=== PATIENT | female | born 1990 | race Hispanic/Latino ===

== ENCOUNTER 2022-08-28 18:08 | Emergency (ER) | payer SELFPAY ==
--- OUTSIDE RECORDS SUMMARY | 2022-08-28 18:10 | XMS REPORT | Continuity of Care Document ---
:[address] [facility] Address [address] [place] [address] Care Team Providers Name Role Phone PCP, PATIENT DOES NOT HAVE A Primary Care Physician Unavaila ble MARTHA CURIEL Attending Clinician Unavailable Only, Ang Db Test Attending Clinician Unavailable Omlester SALES REPRESENTATIVE LIVESTOCKMartha Attending Clinician Ebrahim SALES REPRESENTATIVE LIVESTOCK, Farrukh Attending Clinician Doctor Unassigned, Causey Attending Clinician Unavailable Problems This patient has no known problems. Allergies, Adverse Reactions, Alerts Allergy Allergy Status Severity Reaction(s) Onset Inactive Treating Comm ents Source Name Type Date Date Clinician NO KNOWN Drug Active Univers ALLERGIE Class ity of S [facility] Social History Social Habit Start Date Stop Date Quantity Comments Source Exposure to 2022-05-07 2022-05-17 Yes [facility] SARS-CoV-2 (event) 00:00:00 19:57:00 Medica l Branch Sex Assigned At [birth year] [facility] y of [place] 00:00:00 00:00:00 [facility] Smoking Status Start Date Stop Date Source Tobacco smoking consumption [facility] Branch Medications This patient has no known medications. Immunizations Ordered Filled Immunization Date Status Comments [facility] e Immunization Name Name SARS-COV-2 COVID-19 2021-09-04 Completed Unive rsity of PFIZER VACCINE 00:00:00 [facility] SARS-COV-2 COVID-19 2021-09-04 Completed Unive rsity of PFIZER VACCINE 00:00:00 [facility] SARS-COV-2 COVID-19 2021-09-04 Completed Unive rsity of PFIZER VACCINE 00:00:00 [facility] SARS-COV-2 COVID-19 2021-03-15 Completed Unive rsity of PFIZER VACCINE 00:00:00 [facility] SARS-COV-2 COVID-19 2021-03-15 Completed Unive rsity of PFIZER VACCINE 00:00:00 [facility] SARS-COV-2 COVID-19 2021-03-15 Completed Unive rsity of PFIZER VACCINE 00:00:00 [facility] SARS-COV-2 COVID-19 2021-02-24 Completed Unive rsity of PFIZER VACCINE 00:00:00 [facility] SARS-COV-2 COVID-19 2021-02-24 Completed Unive rsity of PFIZER VACCINE 00:00:00 [facility] SARS-COV-2 COVID-19 2021-02-24 Completed Unive rsity of PFIZER VACCINE 00:00:00 [facility] Procedures This patient has no known procedures. Encounters Start End Encounter Admission Attending Care Care Encounter Source Date/Time Date/Time Type Type Clinicians Facility Department ID 2022-05-17 2022-05-17 Outpatient R [facility] [id number] Univers 20:00:00 20:17:04 [facility] 2022-05-17 2022-05-17 Laboratory Only, Ang Db Test [facility] 1.2.8 40.114 [id number] Univers 20:00:00 20:15:00 Only [facility] [employer] [id number] ity of [place] [id number] Miah as MARCI?BLEA [phone] [address] MEDICAL OFFICE BUILDING 2022-05-17 2022-05-17 Letter Jojo ALSHERRON [id number] Univers 00:00:00 00:00:00 (Out) [employer] [id number] it y of [place] [id number] Miah as MARCI?BLEA [phone] [address] MEDICAL OFFICE [facility] 2022-05-17 2022-05-17 Letter Doctor LONG [id number] Univers 00:00:00 00:00:00 (Out) UnassignedANGELINE [id number] ity of Causey [facility] [id number] Miah as [phone] [facility] 044 Branch Results This patient has no known results.
--- NOTE | 2022-08-28 18:41 | EDPHYS ---
Physician Documentation [facility] Name: Teresita Chavez Age: 31 yrs Sex: Female : 1990 Arrival Date: 08/28/2022 Time: 18:12 Bed 11 Private MD: ED Physician Guero Fernández HPI: 08/28 18:33 This 31 yrs old Female presents to ER via Ambulatory with complaints of Eye cp Swelling. 18:33 The patient is experiencing swelling of right lower eyelid. Onset: The symptoms/episode cp began/occurred this morning. Duration: the symptoms are continuous. Associated signs and symptoms: Pertinent negatives: fever. Patient denies use of contact lenses. 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 - Social history:: Smoking status: Patient reports the use of cigarette tobacco products, denies chronic smoking, but will smoke occasionally. ROS: 18:35 Constitutional: Negative for fever. cp 18:35 Eyes: Positive for swelling, of the right lower eyelid, Negative for discharge, matting, visual disturbance. 18:35 ENT: Negative for drainage from ear(s), ear pain, sore throat, difficulty swallowing, difficulty handling secretions. 18:35 Neuro: Negative for altered mental status, headache. 18:35 All other systems are negative. Exam: 18:36 Head/Face: Normocephalic, atraumatic. cp 18:36 Constitutional: The patient appears in no acute distress, alert, awake, non-toxic, well developed, well nourished. 18:36 Eyes: Periorbital structures: appear normal, Conjunctiva: erythema of right lower eyelid conjunctiva. Sclera: no appreciated abnormality, Lids and lashes: erythema, right lower eyelid, stye, right lower eyelid. 18:36 ENT: External ear(s): are unremarkable, Nose: is normal, Mouth: Lips: moist, Oral mucosa: moist. 18:36 Cardiovascular: Rate: normal. 18:36 Respiratory: the patient does not display signs of respiratory distress, Respirations: normal. 18:36 Skin: cellulitis, is not appreciated, no rash present. Vital Signs: 18:28 BP 126 / 82; Pulse 85; Resp 14; Temp 97.3(TE); Pulse Ox 100% on R/A; Weight 77.11 kg; ss Height 5 ft. 2 in. (157.48 cm); Pain 7/10; 18:28 Body Mass Index 31.09 (77.11 kg, 157.48 cm) ss MDM: 18:33 Patient medically screened. cp 18:39 Data reviewed: vital signs, nurses notes. Counseling: I had a detailed discussion with cp the patient and/or guardian regarding: the historical points, exam findings, and any diagnostic results supporting the discharge/admit diagnosis, to return to the emergency department if symptoms worsen or persist or if there are any questions or concerns that arise at home. Administered Medications: No medications were administered Disposition Summary: 08/28/22 18:41 Discharge Ordered Location: Home cp Problem: new cp Symptoms: are unchanged cp Condition: Stable cp Diagnosis - Hordeolum internum right lower eyelid cp Followup: cp - With: Rosmery Jackson MD - When: 2 - 3 days - Reason: Worsening of condition Discharge Instructions: - Discharge Summary Sheet cp - Nick cp Forms: - Medication Reconciliation Form cp - Thank You Letter cp - Antibiotic Education cp - Prescription Opioid Use cp Prescriptions: - Erythromycin 5 mg/gram (0.5 %) Ophthalmic Ointment - apply 1 ribbon by OPHTHALMIC route every 8 hours apply to inner right lower cp eyelid as directed for next 5-7 days; 1 tube; Refills: 0, Product Selection Permitted Signatures: Sheri Diallo RN RN ss Triston Ren PA PA cp Corrections: (The following items were deleted from the chart) 18:43 18:41 Chalazion right lower eyelid cp cp
--- NOTE | 2022-08-28 18:41 | ER ---
Nurse's Notes [facility] Name: Teresita Chavez Age: 31 yrs Sex: Female : 1990 Arrival Date: 08/28/2022 Time: 18:12 Bed 11 Private MD: Diagnosis: Hordeolum internum right lower eyelid Presentation: 08/28 18:28 Chief complaint: Patient states: Swelling to R eyelid that began yesterday. Coronavirus ss screen: Client denies travel out of the [place] in the last 14 days. Ebola Screen: Patient denies exposure to infectious person. Patient denies travel to an Ebola-affected area in the 21 days before illness onset. Initial Sepsis Screen: Does the patient meet any 2 criteria? No. Patient's initial sepsis screen is negative. Does the patient have a suspected source of infection? No. Patient's initial sepsis screen is negative. Risk Assessment: Do you want to hurt yourself or someone else? Patient reports no desire to harm self or others. Onset of symptoms was August 27, 2022. 18:28 Method Of Arrival: Ambulatory ss 18:28 Acuity: JIE 5 ss Triage Assessment: 18:49 General: Appears in no apparent distress. comfortable, Behavior is calm, cooperative, kr3 appropriate for age. Pain: Complains of pain in right eye. 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 - Social history:: Smoking status: Patient reports the use of cigarette tobacco products, denies chronic smoking, but will smoke occasionally. Screenin:48 Abuse screen: Denies threats or abuse. Nutritional screening: No deficits noted. kr3 Tuberculosis screening: No symptoms or risk factors identified. Fall Risk None identified. Vital Signs: 18:28 BP 126 / 82; Pulse 85; Resp 14; Temp 97.3(TE); Pulse Ox 100% on R/A; Weight 77.11 kg; ss Height 5 ft. 2 in. (157.48 cm); Pain 7/10; 18:28 Body Mass Index 31.09 (77.11 kg, 157.48 cm) ED Course: 18:12 Patient arrived in ED. mr 18:30 Triage completed. ss 18:30 Page, Triston, PA is PHCP. cp 18:30 Guero Fernández MD is Attending Physician. cp 18:30 Arm band placed on right wrist. ss 18:35 Tammy Null, RN is Primary Nurse. kr3 18:39 Rosmery Jackson MD is Referral Physician. cp 18:49 No provider procedures requiring assistance completed. Patient did not have IV access kr3 during this emergency room visit. 18:50 Placed in gown. Bed in low position. Call light in reach. Side rails up X 1. kr3 Administered Medications: No medications were administered Medication: 18:50 VIS not applicable for this client. kr3 Outcome: 18:41 Discharge ordered by MD. cp 18:49 Discharged to home ambulatory. kr3 18:49 Condition: stable 18:49 Discharge instructions given to patient, Instructed on discharge instructions, follow up and referral plans. medication usage, Demonstrated understanding of instructions, follow-up care, medications, Prescriptions given X 1. 18:50 Patient left the ED. kr3 Signatures: Ness Castro Sheri Diallo, RN RN Triston Ren PA PA cp Tammy Null, RN RN kr3
[2022-08-28 18:54] VITALS: BP 126/82; TEMP 97.3; O2SAT 100
== END 2022-08-28 18:50 | disposition home or self-care (01) ==
LOC: ER 18:08
DX: H00.022 Hordeolum internum right lower eyelid (principal)
CPT/HCPCS: 99282

== ENCOUNTER 2023-03-20 18:06 | Emergency (ER) | payer SELFPAY ==
--- OUTSIDE RECORDS SUMMARY | 2023-03-20 18:10 | XMS REPORT | Continuity of Care Document ---
:1990 Author Organization [facility] Address [address] [place] [address] [place] [address] Care Team Providers Name Role Phone PCP, PATIENT DOES NOT HAVE A Primary Care Physician Unavaila ble MARTHA CURIEL Attending Clinician Unavailable Only, Ang Db Test Attending Clinician Unavailable Moisés ANESTHESIOLOGY FACULTYMartha Attending Clinician Ebrahim ANESTHESIOLOGY FACULTY, Farrukh Attending Clinician Doctor Unassigned, [facility] Attending Clinician Unavailable Problems This patient has no known problems. Allergies, Adverse Reactions, Alerts Allergy Allergy Status Severity Reaction(s) Onset Inactive Treating Comm ents Source Name Type Date Date Clinician NO KNOWN Drug Active Univers ALLERGIE Class ity of S [facility] Social History Social Habit Start Date Stop Date Quantity Comments Source Exposure to 2022-05-07 2022-05-17 Yes [facility] SARS-CoV-2 (event) 00:00:00 19:57:00 Medica l Branch Sex Assigned At [birth year] [facility] y of [place] 00:00:00 00:00:00 [facility] Smoking Status Start Date Stop Date Source Tobacco smoking consumption [facility] Branch Medications This patient has no known medications. Immunizations Ordered Filled Immunization Date Status Comments [facility] Branch e Immunization Name Name SARS-COV-2 COVID-19 2021-09-04 Completed Unive rsity of PFIZER VACCINE 00:00:00 [facility] SARS-COV-2 COVID-19 2021-09-04 Completed Unive rsity of PFIZER VACCINE 00:00:00 [facility] SARS-COV-2 COVID-19 2021-09-04 Completed Unive rsity of PFIZER VACCINE 00:00:00 [facility] SARS-COV-2 COVID-19 2021-03-15 Completed Unive rsity of PFIZER VACCINE 00:00:00 [facility] SARS-COV-2 COVID-19 2021-03-15 Completed Unive rsity of PFIZER VACCINE 00:00:00 [facility] SARS-COV-2 COVID-19 2021-03-15 Completed Unive rsity of PFIZER VACCINE 00:00:00 [facility] SARS-COV-2 COVID-19 2021-02-24 Completed Unive rsity of PFIZER VACCINE 00:00:00 [facility] SARS-COV-2 COVID-19 2021-02-24 Completed Unive rsity of PFIZER VACCINE 00:00:00 [facility] SARS-COV-2 COVID-19 2021-02-24 Completed Unive rsity of PFIZER VACCINE 00:00:00 [facility] Procedures This patient has no known procedures. Encounters Start End Encounter Admission Attending Care Care Encounter Source Date/Time Date/Time Type Type Clinicians Facility Department ID 2022-05-17 2022-05-17 Outpatient R [facility] [id number] Univers 20:00:00 20:17:04 [facility] 2022-05-17 2022-05-17 Laboratory Only, Ang Db Test [facility] 1.2.8 40.114 [id number] Univers 20:00:00 20:15:00 [facility] [employer] [id number] ity of [place] [id number] Miah as MARCI?BLEA [id number] [address] MEDICAL OFFICE BUILDING 2022-05-17 2022-05-17 Letter Jojo MNSHERRON [id number] Univers 00:00:00 00:00:00 (Out) [facility] [id number] it y of [place] [id number] Miah as MARCI?BLEA [phone] [address] MEDICAL OFFICE [facility] 2022-05-17 2022-05-17 Letter Doctor LONG [id number] Univers 00:00:00 00:00:00 (Out) UnassignedANGELINE [id number] [id number] Miah as [phone] [facility] 044 Branch Results This patient has no known results.
--- NOTE | 2023-03-20 18:50 | EDPHYS ---
Physician Documentation [facility] Name: Teresita Chavez Age: 32 yrs Sex: Female : 1990 Arrival Date: 03/20/2023 Time: 18:06 Bed 10 Private MD: ED Physician Triston Yousif HPI: 03/20 18:46 This 32 yrs old Female presents to ER via Unassigned with complaints of Finger jmm Injury, Laceration. 18:46 This is a 32 year old female that presents to the ED with complaints of laceration to jmm her left 2nd finger. Occurred last night. Put glue on the wound. Was concerned it may need stitches. Unsure on tetanus immumizations. . 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 - Social history:: Smoking status: Patient denies any tobacco usage or history of. ROS: 18:46 Constitutional: Negative for fever, chills, and weight loss, Cardiovascular: Negative jmm for chest pain, palpitations, and edema, Respiratory: Negative for shortness of breath, cough, wheezing, and pleuritic chest pain. 18:46 MS/extremity: Positive for laceration. 18:46 All other systems are negative. Exam: 18:46 Constitutional: This is a well developed, well nourished patient who is awake, alert, jmm and in no acute distress. Head/Face: atraumatic. Eyes: EOMI, no conjunctival erythema appreciated ENT: Moist Mucus Membranes Neck: Trachea midline, Supple Chest/axilla: Normal chest wall appearance and motion. Cardiovascular: Regular rate and rhythm. No edema appreciated Respiratory: Normal respirations, no respiratory distress appreciated Abdomen/GI: Non distended Back: Normal ROM 18:46 Skin: laceration ntoed to the left 2nd finger with glue applied. Mild erythema noted. 18:46 Neuro: Orientation: is normal, Mentation: is normal, Memory: is normal. 18:46 Psych: Behavior/mood is pleasant, cooperative. Vital Signs: 18:49 BP 124 / 78; Pulse 74; Resp 16; Temp 98.1; Pulse Ox 100% ; Weight 78.02 kg; Height 5 mb9 ft. 1 in. ; 18:49 Body Mass Index 32.50 (78.02 kg, 154.94 cm) mb9 MDM: 18:45 Patient medically screened. [facility] 18:48 Differential diagnosis: laceration, cellulitis. Data reviewed: vital signs, nurses [facility] notes. Counseling: I had a detailed discussion with the patient and/or guardian regarding: the historical points, exam findings, and any diagnostic results supporting the discharge/admit diagnosis, the need for outpatient follow up, to return to the emergency department if symptoms worsen or persist or if there are any questions or concerns that arise at home. 03/20 18:45 Order name: Wound Care; Complete Time: 18:54 [facility] Administered Medications: 19:05 Drug: Tetanus-Diphtheria Toxoid IM Adult 0.5 ml {Medical Support Specialist: Karisma Kidz. Exp: mb9 04/13/2024. Lot #: [id number]. } Route: IM; Site: left deltoid; 19:06 Follow up: Response: No adverse reaction 9 Disposition Summary: 03/20/23 18:49 Discharge Ordered Location: Home [facility] Condition: Stable [facility] Diagnosis - Laceration of the Finger [facility] Followup: [facility] - With: Private Physician - When: 2 - 3 days - Reason: Recheck today's complaints, Continuance of care, Re-evaluation by your physician Discharge Instructions: - Discharge Summary Sheet [facility] - Nonsutured Laceration Care [facility] Forms: - Work release form [place] - Medication Reconciliation Form [facility] - Thank You Letter [facility] - Antibiotic Education [facility] - Prescription Opioid Use [facility] Prescriptions: - Cephalexin 500 mg Oral Capsule - take 1 capsule by ORAL route every 6 hours for 10 days; 40 capsule; Refills: 0, [facility] Product Selection Permitted Signatures: Carlton Brink PA PA jmm Breneman, Mary Beth RN RN mb9
[2023-03-20] MEDS ORDERED: TETANUS & DIPHTHERIA TOX,ADULT 0.5 ML VIAL ONE (19:02)
--- NOTE | 2023-03-20 19:07 | ER ---
Nurse's Notes [facility] Name: Teresita Chavez Age: 32 yrs Sex: Female : 1990 Arrival Date: 03/20/2023 Time: 18:06 Bed 10 Private MD: Diagnosis: Laceration of the Finger Presentation: 03/20 18:49 Chief complaint: Patient states: "yesterday I was cooking and when I went to open a can mb9 of beans with a can nurse supervisor and it sliced my left pointer". Coronavirus screen: Vaccine status: Patient reports being unvaccinated. Ebola Screen: No symptoms or risks identified at this time. Initial Sepsis Screen: Does the patient meet any 2 criteria? No. Patient's initial sepsis screen is negative. Does the patient have a suspected source of infection? No. Patient's initial sepsis screen is negative. Risk Assessment: Do you want to hurt yourself or someone else? Patient reports no desire to harm self or others. Onset of symptoms was March 19, 2023. 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 - Social history:: Smoking status: Patient denies any tobacco usage or history of. Screenin:54 [facility] ED Fall Risk Assessment (Adult) History of falling in the last 3 months, mb9 including since admission No falls in past 3 months (0 pts) Confusion or Disorientation No (0 pts) Intoxicated or Sedated No (0 pts) Impaired Gait No (0 pts) Mobility Assist Device Used No (0 pt) Altered Elimination No (0 pt) Score/Fall Risk Level 0 - 2 = Low Risk. [facility] ED Fall Risk Assessment (Adult) Score/Fall Risk Level 0 - 2 = Low Risk Oriented to surroundings, Maintained a safe environment, Educated pt \\T\\ family on fall prevention, incl call for assistance when getting out of bed. Abuse screen: Denies threats or abuse. Nutritional screening: No deficits noted. Tuberculosis screening: No symptoms or risk factors identified. Assessment: 18:53 Pain: Denies pain. Neuro: Level of Consciousness is awake, alert, obeys commands, mb9 Oriented to person, place, time, situation, Appropriate for age. Cardiovascular: Patient's skin is warm and dry. Respiratory: Airway is patent Respiratory effort is even, unlabored, Respiratory pattern is regular, symmetrical. Derm: Skin is pink, warm \\T\\ dry. Musculoskeletal: Range of motion: intact in all extremities. Injury Description: Laceration sustained to left pointer finger is clean, jagged, superficial, 0.5 to 2.5 cm long, not bleeding, was sustained 12-24 hours ago. no active bleeding noted at this time. Vital Signs: 18:49 BP 124 / 78; Pulse 74; Resp 16; Temp 98.1; Pulse Ox 100% ; Weight 78.02 kg; Height 5 mb9 ft. 1 in. ; 18:49 Body Mass Index 32.50 (78.02 kg, 154.94 cm) mb9 ED Course: 18:28 Patient arrived in ED. kj1 18:40 Triston Ren PA is PHCP. cp 18:40 Triston Yousif MD is Attending Physician. cp 18:45 PHCP role handed off by Triston Ren PA jmm 18:45 Carlton Brink PA is PHCP. rebecca 18:45 Ness Odom, THA is Primary Nurse. mb9 18:51 Triage completed. mb9 18:51 Arm band placed on. mb9 18:54 Placed in gown. Bed in low position. Call light in reach. Side rails up X 1. Client mb9 placed on continuous cardiac and pulse oximetry monitoring. NIBP monitoring applied. 18:54 No provider procedures requiring assistance completed. Patient did not have IV access mb9 during this emergency room visit. 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 Exp: mb9 04/13/2024. Lot #: [id number]. } Route: IM; Site: left deltoid; 19:06 Follow up: Response: No adverse reaction mb9 Medication: 18:52 VIS not applicable for this client. mb9 Outcome: 18:49 Discharge ordered by . rebecca 19:06 Discharged to home ambulatory. mb9 19:06 Condition: stable 19:06 Discharge instructions given to patient, Instructed on discharge instructions, follow up and referral plans. Demonstrated understanding of instructions, follow-up care, medications, Prescriptions given X 1. 19:07 Patient left the ED. mb9 Signatures: Carlton Brink PA PA jmm Page, Corey, PA PA cp Jackson, Simona kj1 Ness Odom RN RN mb9 Corrections: (The following items were deleted from the chart) 18:52 18:49 BP 124 / 78; Pulse 16bpm; Resp 16bpm; Pulse Ox 100%; Temp 98.1F; 78.02 kg; Height mb9 5 ft. 1 in.; BMI: 32.5; mb9
[2023-03-20 19:18] VITALS: BP 124/78; TEMP 98.1; O2SAT 100
== END 2023-03-20 19:07 | disposition home or self-care (01) ==
LOC: ER 18:06
DX: S61.213A Laceration without foreign body of left middle finger without damage to nail, initial encounter (principal); Z23 Encounter for immunization
CPT/HCPCS: 90714

== ENCOUNTER 2025-08-17 13:42 | Emergency (ER) | payer OTHER ==
--- OUTSIDE RECORDS SUMMARY | 2025-08-17 13:45 | XMS REPORT | Continuity of Care Document ---
Author Name Unknown Address [address] [place] [address] [address] [place] [address] [facility] Address [address] [facility] [address] [place] [address] Care Team Providers Care Rig Mechanic Name Role Phone Bari Contreras Primary Care Physician [phone] ANNABELLE CURIEL Attending Clinician Unavailabl e Only, Ang Db Test Attending Clinician Unavailabl e Annabelle Snow Attending Clinician [phone] Ebrahilobito CARE ADVOCATEFarrukh Attending Clinician [phone] Doctor Unassigned, [place] Attending Clinician U navailable Allergies, Adverse Reactions, Alerts Allergy Name Allergy Type Status Severity Reaction(s) Onset Date Inactive Date Treating Clinician Comments Source NO KNOWN ALLERGIE S Drug Class Active Univers [facility] Social History Social Habit Start Date Stop Date Quantity Comments Source Exposure to SARS-CoV-2 (event) 2022-05-07 00:00:00 2022-05-17 19:57:00 Yes [facility] Sex Assigned At 1990 00:00:00 1990 00:00:00 [facility] Smoking Status Start Date Stop Date Source Tobacco smoking consumption unknown [facility] Medications Ordered Medication Name Filled Medication Name Start Date Stop Date Current Medication? Ordering Clinician Indication Dosage Frequency Signature (SIG) Comments Components Source ciprofloxac in 0.3 %-dexametha sone 0.1 % ear drops,suspe nsion 7-31 00:00: 00 Yes 4% Bc Marley metronidazo le 500 mg tablet 2-10 00:00: 00 Yes 1mg Bc Marley Macrobid 100 mg capsule 2- 00:00: 00 Yes 1mg Bc Marley clotrimazol e 1 % vaginal cream 2- 00:00: 00 Yes % Bc Marley fluconazole 150 mg tablet 2-05 00:00: 00 Yes 1mg Bc Marley Bromfed DM 2 mg-30 mg-10 mg/5 mL oral syrup 8-06 00:00: 00 Yes 10mg/5 mL Bc Marley APPLY 1 RIBBON TO INNER RIGHT LOWER EYELID DIRECTED EVERY 8 HOURS FOR 5-7 DAYS 2021-11 0- 00:00: 00 Yes Bc Marley Vital Signs Vital Name Observation Time Observation Value Comments S ourdavid BP Systolic 2025-06-03 15:15:00 110 mm[Hg] Step hen Sonali Marley BP Diastolic 2025-06-03 15:15:00 74 mm[Hg] Lj phen F Donell Weight Measured 2025-06-03 15:15:00 169.00 pounds Bc Marley Height Measured 2025-06-03 15:15:00 62.00 inches Bc Marley Body Temperature 2025-06-03 15:15:00 97.90 degrees Bc Marley Heart Rate 2025-06-03 15:15:00 83.00 /min Nola en F Donell Respiratory Rate 2025-06-03 15:15:00 17.00 /min Bc Marley BP Systolic 2025-04-15 14:21:00 109 mm[Hg] Gerard hen Sonali Marley BP Diastolic 2025-04-15 14:21:00 73 mm[Hg] Lj phen Sonali Marley Weight Measured 2025-04-15 14:21:00 168.00 pounds Bc Marley Height Measured 2025-04-15 14:21:00 62.00 inches Bc Marley Body Temperature 2025-04-15 14:21:00 98.30 degrees Bc Marley Heart Rate 2025-04-15 14:21:00 70.00 /min Nola en F Donell Respiratory Rate 2025-04-15 14:21:00 19.00 /min Bc Marley BP Systolic 2024-12-09 15:56:00 122 mm[Hg] Step hen F Donell BP Diastolic 2024-12-09 15:56:00 76 mm[Hg] Lj phen Sonali Marley Weight Measured 2024-12-09 15:56:00 167.40 pounds Bc Marley Height Measured 2024-12-09 15:56:00 62.00 inches Bc Sonali Marley Body Temperature 2024-12-09 15:56:00 98.80 degrees Bc Sonali Marley Heart Rate 2024-12-09 15:56:00 77.00 /min Nola en F Donell Respiratory Rate 2024-12-09 15:56:00 18.00 /min Bc Sonali Marley Respiratory Rate 2024-06-09 13:54:00 18.00 /min Bclaisha Marley BP Systolic 2024-06-09 13:54:00 109 mm[Hg] Step hen F Donell BP Diastolic 2024-06-09 13:54:00 74 mm[Hg] Lj phen Sonali Marley Weight Measured 2024-06-09 13:54:00 163.20 pounds Bc Marley Height Measured 2024-06-09 13:54:00 62.00 inches Bc Marley Body Temperature 2024-06-09 13:54:00 97.60 degrees Bc Marley Heart Rate 2024-06-09 13:54:00 89.00 /min Nola en F Donell Encounters Start Date/Time End Date/Time Encounter Type Admission Type Attending [facility] Care Department Encounter ID Source 2025-06-03 15:10:47 2025-06-03 15:10:47 Outpatient [facility] [id number] Bc Marley 2025-06-03 00:00:00 2025-06-03 00:00:00 Outpatient Visit [facility] [id number] Bc Marley 2025-04-15 14:10:38 2025-04-15 14:10:38 Outpatient [facility] [id number] Bc Marley 2024-12-09 15:42:50 2024-12-09 15:42:50 Outpatient [facility] [id number] Bc Marley 2024-12-09 00:00:00 2024-12-09 00:00:00 Outpatient Visit [facility] [id number] Bc Marley 2024-06-09 13:53:04 2024-06-09 13:53:04 Outpatient [facility] [id number] Bc Marley 2024-06-09 00:00:00 2024-06-09 00:00:00 Outpatient Visit [facility] [id number] Bc Marley 2022-05-17 20:00:00 2022-05-17 20:17:04 Outpatient R ANNABELLE CURIEL [facility] [id number] [facility] 2022-05-17 20:00:00 2022-05-17 20:15:00 Laboratory Only Only, Ang Db Test [facility] [id number] [facility] 2022-05-17 00:00:00 2022-05-17 00:00:00 Letter (Out) Farrukh Uribe [facility] [id number] [facility] 2022-05-17 00:00:00 2022-05-17 00:00:00 Letter (Out) Doctor Unassigned, [place] [facility] [id number] [facility] Results Test Description Test Time Test Comments Results Result Co mments Source CULTURE, URINE 2024-12-14 14:55:52 SPECIMEN NUMBER: [id number] CULTURE, URINE SPECIMEN NUMBER: [id number] SOURCE: URINE REPORT STATUS: FINAL ISOLATE NUMBER 1: ORGANISM: 12/12/2024 10,000-100,000 CFU/ML GRAM NEGATIVE BACILLI IDENTIFICATION: 12/13/2024 KLEBSIELLA PNEUMONIAE K. PNEUMONIAE AMOX ICILLIN/CA SENSITIVE <=8/4AMPICILLIN RESISTANT >16CEFAZOLIN SENSITIVE <=2CEFTRIAXONE SENSITIVE <=1CIPROFLOXACIN SENSITIVE <=0.25LEVOFLOXACIN SENSITIVE <=0.5NITROFURANTOIN RESISTANT >64PIP/TAZOBAC SENSITIVE <=16TOBRAMYCIN SENSITIVE <=4TRIMETH/SULFA SENSITIVE <=2/38 NOTE: NUMBERS DISPLAYED REPRESENT MINIMUM INHIBITORY CONCENTRATION (BETTY) WHICH IS EXPRESSED IN MCG/ML. Bc Lyon AustinCT/NG, NAAT, [id number] 20:21:07* Test Item Value Reference Range Interpretation Comme nts CHLAMYDIA, NAAT, URINE (test code = 85761) NEGATIVE NEGATIVE Testing is perfo rmed with Rafael SAROJ 6800/8800 systems usingreal-time polymerase chain reaction (PCR) method. A negative result does not exclude low level infection, specimensampling error, or collection error. GONORRHEA, NAAT, URINE (test code = 31551) NEGATIVE NEGATIVE Testing is perfo rmed with Rafael SAROJ 6800/8800 systems usingreal-time polymerase chain reaction (PCR) method. A negative result does not exclude low level infection, specimensampling error, or collection error. VAGINAL PATHOGENS DNA [id number] 13:19:09* Test Item Value Reference Range Interpretation Comme nts JULY SPECIES (test code = 80140) NEGATIVE NEGATIVE G. VAGINALIS (test code = 30879) POSITIVE NEGATIVE A T. VAGINALIS (test code = 18098) NEGATIVE NEGATIVE Note: The [facility] VPIII Microbial Identification Testis a DNA probe test intended for use in the detectionand identification of July species, Gardnerellavaginalis and Trichomonas vaginalis nucleic acid. HEPATITIS PANEL, [id number] 04:05:48* Test Item Value Reference Range Interpretation Comments HEPATITIS A TOTAL AB (test code = 2725) REACTIVE NON-REACTIVE A HEPATITIS B SURF AG (test code = 2739) NON-REACTIVE NON-REACTIVE HEP B CORE TOTAL AB (test code = 2729) NON-REACTIVE NON-REACTIVE HEPATITIS B SURFACE AB (test code = 2737) NON-REACTIVE NON-REACTIVE HEPATITIS C ANTIBODY (test code = 4675) NON-REACTIVE NON-REACTIVE INTERPRETATION HEPATITIS A: (test code = 2552) (NOTE) Hepatitis A sero logy consistent with past exposure or previousvaccination to hepatitis A virus. No evidence of current acutehepatitis A infection. INTERPRETATION HEPATITIS B: (test code = 65862) (NOTE) Hepatitis B sero logy shows no evidence of past exposure to orcurrent infection with hepatitis B virus. No evidence of hepatitis Bimmunization is identified. INTERPRETATION HEPATITIS C: (test code = 78310) (NOTE) Hepatitis C sero logy shows no evidence of exposure to hepatitisC virus at this time. It can take up to 12 months after exposure tothe hepatitis C virus for antibodies to become detectable in the blood in certain patients. HEPATITIS A [id number] 04:05:48* Test Item Value Reference Range Interpretation Comme nts HEPATITIS A IgM (test code = 2728) NON-REACTIVE NON-REACTIVE UNLESS OTHERW ISE INDICATED, ALL TESTING PERFORMED AT [facility] [address] [place] [address] WRAP KNITTING MACHINE OPERATOR: CLIFTON TRACEY M.D. [place] NUMBER [id number] [facility] [place]. [id number] 03:07:16* Test Item Value Reference Range Interpretation Comme nts RPR RESULT (test code = 3501) NON-REACTIVE NON-REACTIVE RPR TITER (test code = 3500) NOT INDIC. TITER NOT INDIC. [id number] 00:00:00* Test Item Value Reference Range Interpretation Comme nts RPR RESULT (test code = 3501) NON-REACTIVE RPR TITER (test code = 3500) NOT INDIC. TITER Bc Lyon AustinVAGINAL PATHOGENS DNA [id number] 00:00:00* Test Item Value Reference Range Interpretation Comme nts JULY SPECIES (test code = 19393) NEGATIVE G. VAGINALIS (test code = 03416) POSITIVE T. VAGINALIS (test code = 69031) NEGATIVE Bc Lyon AustinHEPATITIS PROFILE (A,B,C)2024-12-11 00:00:00* Test Item Value Reference Range Interpretation Comme nts HEPATITIS A TOTAL AB (test c ode = 2725) REACTIVE HEPATITIS B SURF AG (test co de = 2739) NON-REACTIVE HEP B CORE TOTAL AB (test co de = 2729) NON-REACTIVE HEPATITIS B SURFACE AB (test code = 2737) NON-REACTIVE HEPATITIS C ANTIBODY (test c ode = 4675) NON-REACTIVE INTERPRETATION HEPATITIS A: (test code = 2552) (NOTE) INTERPRETATION HEPATITIS B: (test code = 51433) (NOTE) INTERPRETATION HEPATITIS C: (test code = 58198) (NOTE) Bc Lyon AustinCT/NG, NAAT, [id number] 00:00:00* Test Item Value Reference Range Interpretation Comme nts CHLAMYDIA, NAAT, URINE (test code = 46903) NEGATIVE GONORRHEA, NAAT, URINE (test code = 90099) NEGATIVE Bc Lyon AustinHEPATITIS A IgM [REFLEX]2024-12-11 00:00:00* Test Item Value Reference Range Interpretation Comme nts HEPATITIS A IgM (test code = 2728) NON-REACTIVE Bc Lyon AustinPAP TEST, THINPREP, IMAGED + HPV HIGH RISK + GC AND CHLAMYDIA [id number] 13:13:38* Test Item Value Reference Range Interpretation Comme nts SOURCE: (test code = 8001) Unspecified SLIDES: (test code = 8011) 1 LMP: (test code = 8021) NOT GIVEN SPECIMEN ADEQUACY: (test code = 20460) (NOTE) Satisfactory for evaluation. Endocervical cells/transformation zone component present. INTERPRETATION: (test code = 05370) NILM/NO EPITH. ABNORMALITY;SEE BELOW -- ---- NEGATIVE FOR INTRAEPITHELIAL LESION OR MALIGNANCY (NILM) ------- OUTER DIAMETER GRINDER : (test code = 8101) Karishma Lowe LOCATION: (test code = 72683) (NOTE) Specimens proces sed and interpreted at [facility], [address] [place] [address], , CLIA: [id number] CPT: (test code = 8340) [address]70[address] UNLESS OTHERWISE INDICATED, COMPUTER AIDED AND OUTER DIAMETER GRINDER SCREENING PERFORMED. The Pap test is a screening test with an inherent, but low probability of error. Your patient should be reminded to consult you immediately if she experiences any suspicious signs or symptoms, regardless of her Pap test result. An alternate report format containing images or consolidated prior Pap history is available as applicable. HPV HIGH RISK INTERP (test code = 15504) NEGATIVE NEGATIVE HPV 16 (test code = 71137) NEGATIVE HPV 18 (test code = 69158) NEGATIVE HPV, HR, OTHER GENOTYPES (test code = 54690) NEGATIVE Testing methodol ogy is real-time PCR utilizing hydrolysis probes with the Rafael Saroj system. The test individually detects genotypes 16 and 18, as well as the other 12 high risk types (31,33,35,39,45,51,52, 56,58,59,66,68). The expected result is negative. A negative result does not rule out the presence of HPV not included in the genotype set, a low level of infection or specimen sampling error. GONORRHEA, NAAT, THINPREP (test code = 46893) NEGATIVE NEGATIVE A negative resul t does not exclude low level infection, specimensampling error, or collection error. Testing is performed with the Rafael Saroj 6800/8800 systems usingreal-time Polymerase Chain Reaction (PCR) method. CHLAMYDIA, NAAT, THINPREP (test code = 61072) NEGATIVE NEGATIVE A negative resul t does not exclude low level infection, specimensampling error, or collection error. Testing is performed with the Rafael Saroj 6800/8800 systems usingreal-time Polymerase Chain Reaction (PCR) method. UNLESS OTHERWISE INDICATED, ALL TESTING PERFORMED AT [facility] [address] [place] [address] WRAP KNITTING MACHINE OPERATOR: CLIFTON TRACEY M.D. CLIA NUMBER [id number] [facility] [place]. [id number] PAP TEST, THINPREP, IMAGED + HPV HIGH RISK + GC AND CHLAMYDIA [id number] 00:00:00* Test Item Value Reference Range Interpretation Comme nts SOURCE: (test code = 8001) Unspecified SLIDES: (test code = 8011) 1 LMP: (test code = 8021) NOT GIVEN SPECIMEN ADEQUACY: (test code = 82342) (NOTE) INTERPRETATION: (test code = 53354) NILM/NO EPITH. ABNORMALITY;SEE BELOW OUTER DIAMETER GRINDER: (test code = 8101) Karishma Lowe LOCATION: (test code = 81819) (NOTE) CPT: (test code = 8140) 32340 HPV HIGH RISK INTERP (test code = 43304) NEGATIVE HPV 16 (test code = 00141) NEGATIVE HPV 18 (test code = 20119) NEGATIVE HPV, HR, OTHER GENOTYPES (test code = 77390) NEGATIVE GONORRHEA, NAAT, THINPREP (test code = 93437) NEGATIVE CHLAMYDIA, NAAT, THINPREP (test code = 25844) NEGATIVE PDFE (test code = PDFReport) PDF Bc Marley Notes Date/Time Note Provider Source Bc Marley [facility]2025-02-05 00:00:00 Bc Marley [facility]2024-08-06 00:00:00 Bc Marley [facility]
[2025-08-17 14:52] LABS: Sqamous Epithelial <5 /HPF (None Seen); Urine Culture Reflex Order REFLEXED; Urine Microscopic Reflex YN ORDER UMIC; Urine WBC Clump Rare /HPF (None Seen); Urine Yeast (Budding) Trace /HPF (None Seen)
--- NOTE | 2025-08-17 15:12 | EDPHYS ---
Physician Documentation [facility] Name: Teresita Chavez Age: 34 yrs Sex: Female : 1990 Arrival Date: 08/17/2025 Time: 13:42 Bed 26 Private MD: ED Physician Ahmet Nassar HPI: 08/17 15:09 This 34 yrs old Female presents to ER via Ambulatory with complaints of kb Abdominal Pain, Urinary Problem. 15:10 Patient is a 34-year-old female who presents for urinary frequency that started on kb Saturday, dysuria, suprapubic pain and nausea that started Saturday. States she might of have had a fever last night. Also reports sore throat that started this morning.. 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 - Infectious Disease History:: Denies. - Social history:: Smoking status: Reported history of juuling and/or vaping. ROS: 15:10 Constitutional: As per HPI kb Exam: 15:10 Constitutional: This is a well developed, well nourished patient who is awake, alert, kb and in no acute distress. Head/Face: Normocephalic, atraumatic. ENT: Moist Mucous membranes Cardiovascular: Regular rate Respiratory: Respirations even and unlabored. No increased work of breathing. Talking in full sentences Skin: Warm, dry with normal turgor. Normal color. MS/ Extremity: Pulses equal, no cyanosis. Neurovascular intact. Full, normal range of motion. Neuro: Awake and alert, GCS 15, oriented to person, place, time, and situation. 15:10 Abdomen/GI: Inspection: abdomen appears normal, Bowel sounds: normal, Palpation: soft, in all quadrants, mild abdominal tenderness, in the suprapubic area, Vital Signs: 13:57 BP 99 / 66; Pulse 90; Resp 18; Temp 98.4; Pulse Ox 95% ; Weight 74.84 kg; Height 5 ft. db 1 in. ; 15:25 BP 100 / 69; Pulse 89; Resp 19; Pulse Ox 99% ; rg5 13:57 Body Mass Index 31.18 (74.84 kg, 154.94 cm) db MDM: 13:53 Medical Screening Exam initiated kb 15:11 Differential diagnosis: Pyelonephritis, Ureterolithiasis, urinary tract infection, kb strep. Data reviewed: vital signs, nurses notes. Counseling: I had a detailed discussion with the patient and/or guardian regarding the historical points, exam findings, and any diagnostic results supporting the discharge/admit diagnosis, lab results, the need for outpatient follow up, a family practitioner, to return to the emergency department if symptoms worsen or persist or if there are any questions or concerns that arise at home. 08/17 13:57 Order name: UA Rfx Pro Cult if indicated; Complete Time: 15:00 kb 08/17 13:57 Order name: Group A Streptococcus Rapid; Complete Time: 15:09 kb 08/17 14:55 Order name: Urine Culture; Complete Time: 08:16 EDMS 08/17 15:07 Order name: Throat Culture; Complete Time: 08:16 EDMS Administered Medications: 15:30 Drug: Amoxicillin-Clavulanate PO 875 mg PO once Route: PO; rg5 15:38 Follow up: Response: No adverse reaction rg5 Disposition: 16:08 Co-signature as Attending Physician, Ahmet Nassar MD I reviewed the patient's care rn provided by the Advanced Practice Provider and agree with the diagnosis and treatment plan. Disposition Summary: 08/17/25 15:11 Discharge Ordered Notes: Location: Home kb Condition: Stable kb Diagnosis - UTI/ Urinary tract infection, site not specified kb Followup: kb - With: Emergency Department - When: As needed - Reason: Worsening of condition Followup: kb - With: Private Physician - When: 2 - 3 days - Reason: Recheck today's complaints, Continuance of care, Re-evaluation by your physician Discharge Instructions: - Discharge Summary Sheet kb - Urinary Tract Infection, Adult, [id number] kb Forms: - Medication Reconciliation Form kb - Antibiotic Education kb - Prescription Opioid Use kb - Patient Portal Instructions kb - Leadership Thank You Letter kb - Work release form rg5 Prescriptions: - Augmentin 875-125 mg Oral Tablet - take 1 tablet ORAL route every 12 hours for 10 days; 20 tablet; Refills: 0, kb Product Selection Permitted Signatures: Dispatcher MedHo EDShona Mike FNP-C FNP-CkAhmet Stacy MD MD rn Benton, Danielle, RN RN db Carl Shepherd, THA RN rg5 Juan Colorado FNP-C BRITTNEY-5 Corrections: (The following items were deleted from the chart) 13:58 UA Rfx Pro Cult if indicated+U.LAB.BRZ ordered. EDMS EDMS :58 Group A Streptococcus Rapid Sc+I.LAB.BRZ ordered. EDMS EDMS
--- NOTE | 2025-08-17 15:12 | ER ---
Nurse's Notes [facility] Name: Teresita Chavez Age: 34 yrs Sex: Female : 1990 Arrival Date: 08/17/2025 Time: 13:42 Bed 26 Private MD: Diagnosis: UTI/ Urinary tract infection, site not specified Presentation: 08/17 13:57 Chief complaint: Patient states: SUPER PUBIC PAIN DYSURIA, NAUSEA SINCE SATURDAY AND db FEVER LAST NIGHT. SORE THROAT STARTED THIS AM. Coronavirus screen: Client denies travel out of the [place] in the last 14 days. At this time, the client does not indicate any symptoms associated with coronavirus-19. Ebola Screen: Patient negative for fever greater than or equal to 101.5 degrees Fahrenheit, and additional compatible Ebola Virus Disease symptoms Patient denies exposure to infectious person. Patient denies travel to an Ebola-affected area in the 21 days before illness onset. No symptoms or risks identified at this time. Initial Sepsis Screen: Does the patient meet any 2 criteria? No. Patient's initial sepsis screen is negative. Does the patient have a suspected source of infection? No. Patient's initial sepsis screen is negative. Risk Assessment: Do you want to hurt yourself or someone else? Patient reports no desire to harm self or others. Onset of symptoms was August 14, 2025. 13:57 Method Of Arrival: Ambulatory db 13:57 Acuity: JIE 3 db Triage Assessment: 13:59 General: Appears in no apparent distress. comfortable, Behavior is calm, cooperative. db Pain: Complains of pain in abdomen and pelvis. Neuro: Level of Consciousness is awake, alert, obeys commands, Oriented to person, place, time, situation. Respiratory: Airway is patent Respiratory effort is even, unlabored, Respiratory pattern is regular, symmetrical. GI: Abdomen is flat, non-distended. GI: Reports lower abdominal pain. : Reports burning with urination. MANAGER SOCIAL SERVICES: 13:59 LMP 07/31/2025, unknown db Historical: - Allergies: 13:59 No Known Allergies; db - PMHx: 13:59 None; db - PSHx: 13:59 section; Cholecystectomy; db - Immunization history:: Adult Immunizations unknown. - Infectious Disease History:: Denies. - Social history:: Smoking status: Reported history of juuling and/or vaping. Screenin:11 [facility] ED Fall Risk Assessment (Adult) History of falling in the last 3 months, rg5 including since admission No falls in past 3 months (0 pts) Confusion or Disorientation No (0 pts) Intoxicated or Sedated No (0 pts) Impaired Gait No (0 pts) Mobility Assist Device Used No (0 pt) Altered Elimination No (0 pt) Score/Fall Risk Level 0 - 2 = Low Risk Oriented to surroundings, Maintained a safe environment. Abuse screen: Denies threats or abuse. Nutritional screening: No deficits noted. Tuberculosis screening: No symptoms or risk factors identified. Assessment: 15:11 General: Appears in no apparent distress. Behavior is calm, cooperative, appropriate rg5 for age. Pain: Complains of pain in abdomen. Neuro: Level of Consciousness is awake, alert, obeys commands, Oriented to person, place, time, situation. Cardiovascular: Denies chest pain. Respiratory: Airway is patent Trachea midline Respiratory effort is even, unlabored, Respiratory pattern is regular, symmetrical. GI: Bowel sounds present in left lower quadrant Abd is soft and non tender. : Reports urinary frequency. EENT: No signs and/or symptoms were reported regarding the EENT system. Derm: Skin is intact, Skin is dry, Skin is normal. Musculoskeletal: Circulation, motion, and sensation intact. Range of motion: intact in all extremities. Vital Signs: 13:57 BP 99 / 66; Pulse 90; Resp 18; Temp 98.4; Pulse Ox 95% ; Weight 74.84 kg; Height 5 ft. db 1 in. ; 15:25 BP 100 / 69; Pulse 89; Resp 19; Pulse Ox 99% ; rg5 13:57 Body Mass Index 31.18 (74.84 kg, 154.94 cm) db ED Course: 13:44 Patient arrived in ED. im 13:53 Shona Mckeon [facility]NP-C [facility] kb 13:53 Ahmet Nassar MD is Attending Physician. kb 13:59 Triage completed. db 13:59 Arm band placed on right wrist. db 14:47 Carl Shepherd, THA is Primary Nurse. rg5 15:11 Patient has correct armband on for positive identification. Bed in low position. Call rg5 light in reach. Side rails up X 1. Door closed. Noise minimized. 15:11 No provider procedures requiring assistance completed. Patient did not have IV access rg5 during this emergency room visit. Administered Medications: 15:30 Drug: Amoxicillin-Clavulanate PO 875 mg PO once Route: PO; rg5 15:38 Follow up: Response: No adverse reaction rg5 Medication: 15:11 VIS not applicable for this client. rg5 Outcome: 15:11 Discharge ordered by . marko 15:39 Discharged to home ambulatory, rg5 15:39 Condition: stable 15:39 Discharge instructions given to patient, Instructed on discharge instructions, Demonstrated understanding of instructions, Prescriptions given X 1, 15:39 Patient left the ED. rg5 Addendum: 08/21/2025 08:18 Addendum: Culture Results: Positive urine culture. No further action required. Bacteria i w sensitive to prescribed antibiotic. Signatures: Shona Mckeon, PULPER OPERATOR-C PULPER OPERATOR-Ckb Alanna Tom, RN THA iw Vonda Whyte RN RN Tonja Heath Rommel, RN RN rg5 Corrections: (The following items were deleted from the chart) 08/17 13:59 13:57 Onset of symptoms was August 17, 2025 db db
[2025-08-17] MEDS ORDERED: AMOX/K CLAV 875 MG TAB ONE (15:30)
[2025-08-17 23:55] VITALS: TEMP 98.4
[2025-08-17 23:56] VITALS: BP 100/69; O2SAT 99
== END 2025-08-17 15:39 | disposition home or self-care (01) ==
LOC: ER 13:42
DX: N39.0 Urinary tract infection, site not specified (principal)
CPT/HCPCS: 36415; 81001; 87070; 87077; 87086; 87088; 87186; 99283